=== PATIENT | female | born 1950 | race Caucasian/White ===

== ENCOUNTER 2018-07-31 08:18 | Day surgery (SDC) | payer MEDICARE, OTHER ==
[~2018-07-31] VITALS: Ht 157.5 cm; Wt 54.4 kg
[~2018-07-31 08:18] MED LIST: ACETAMINOPHEN1 EACH PO; ANTACID168 MG PO; CENTRUM SILVER1 EAC5 PO; COD LIVER OIL1 EAC1 PO; COLOSTRUM500 MG PO; FLAGYL500 MG PO; GARLIC1 EACH PO; GREEN TEA CAPL1 EACH PO; KLOR-CON M1010 MEQ PO; LASIX20 MG PO; MULTI VITAMIN1 EACH PO; NICODERM CQ1 EAC1 TD; NORCO 5-325 TA1 EACH PO; PANTOPRAZOLE SO40 MG PO; PERCOCET 7.5-31 EACH PO; SUDAFED 12 HOU120 MG PO; VITAMIN E100 UNI1 PO; VITAMIN K100 MCG PO; [UNRECOGNIZED DRUG - REMARK]; zicam
[2018-07-31] MEDS ORDERED: MAPAP325 MG PO (10:53)
[2018-07-31] MEDS ORDERED: IBUPROFEN600 MG PO (10:53)
--- NOTE | 2018-07-31 10:53 | NUR ---
07/31/18 1053 Janiya Mendez 1041 PT ARRIVED WITH ORAL AIRWAY IN PLACE, RESP EVEN AND UNLABORED. PT STARTED COUGHING AND ORAL AIRWAY REMOVED. PT REORIENTED TO PACU. BP DECREASED AND BP CUFF MOVED AROUND AND RETAKEN. 1044 PT MOVING AROUND IN BED AND O2 REMOVED. PT REORIENTED TO PACU. BP INCREASED TO WITHIN 20% OF BASELINE. PT ASLEEP OFF AND ON. 1050 PT WOKE AND IS REORIENTED TO PACU. PT DENIES PAIN AND NAUSEA. 1051 PT TAKING SIPS OF WATER.
--- NOTE | 2018-08-01 15:04 | OR ---
[facility] [place] [facility] [address] [place], [place] [address] Signed DATE OF OPERATION: 07/31/2018 SURGEON: Renee Shook MD PREOPERATIVE DIAGNOSES: 1. Chest wall nodule suggestive of local breast cancer recurrence. 2. History of stage IV left-sided breast cancer, status post mastectomy, chemotherapy, and refusal of radiation therapy. 3. Nodule of left chest wall medial aspect. POSTOPERATIVE DIAGNOSES: 1. Chest wall nodule suggestive of local breast cancer recurrence. 2. History of stage IV left-sided breast cancer, status post mastectomy, chemotherapy, and refusal of radiation therapy. 3. Nodule of left chest wall medial aspect. PROCEDURE: Excision of chest wall nodule 2.5 cm including skin and subcutaneous tissue. ANESTHESIA: Intravenous sedation and local. ANESTHESIOLOGIST: Renee Dinh CRNA (Marcaine 0.25% with epinephrine). INDICATION: This 67-year-old white woman is a patient of Dr. Dl Mccormack, is known to me from the past having undergone left total mastectomy with axillary dissection for bulky left breast cancer with metastatic disease to the axilla. She has numerous problems including anxiety disorder, as well as von Willebrand disease. Her operation was performed in 2014. She did undergo chemotherapy postoperatively, but refused radiation therapy. Notably, she had a nodule in the right chest wall consistent with recurrent breast cancer. More recently, she has been identified by Dr. Mccormack to have another nodule, this time in the left breast in the region of the prior mastectomy site highly suggestive of local recurrence. Although biopsy of the skin lesion was undertaken previously in the office, she has Electronically Signed By: RENEE SHOOK MD 08/01/18 1504 PATIENT NAME: PARTH PEREZ OPERATIVE REPORT DATE OF : 52 REPORT #: [id number] PHYSICIAN: RENEE SHOOK MD PCP: NO PRIMARY CARE PHYSICIAN REPORT IS CONFIDENTIAL AND NOT TO BE RELEASED WITHOUT AUTHORIZATION [facility] [place] [facility] [address] [place], [place] [address] Signed extreme anxiety and there was a fair amount of distress, screaming, yelling, and so forth with local excision and on that basis she was taken to the operating room for sedation and local anesthesia for a diagnostic excision of this lesion. The risks of bleeding, infection, and so forth were reviewed with her Strong consideration has been made regarding her von Willebrand's disease given the superficial nature of this lesion. has not been initiated for this procedure. This was after conference with Dr. Mccormack about that. FINDINGS: The nodule was dense and highly consistent with local metastatic recurrence. It was excised fully including the skin and subcutaneous tissue. There was no problem with hemostasis. Wound was closed in layers. DESCRIPTION OF PROCEDURE: The patient was brought to the operating room, placed in supine position, and given intravenous sedation. A relatively high amount of propofol was still not adequate for sedation, and additional measures were taken by the strap cutter. Preoperative antibiotic Ancef was given, sequential compression device stockings used. Heparin was not given subcutaneously given her von Willebrand's disease. The left chest was prepared with a chlorhexidine solution and draped sterilely. 0.25% Marcaine with epinephrine was injected locally. An elliptical excision was made in the medial aspect of the left breast to be made in continuity with her mastectomy scar. Dissection was carried around the lesion widely using sharp and electrocautery dissection and extended deeply as well. The wound was then closed with interrupted 2-0 Vicryl in deeper layer and running subcuticular 3-0 Vicryl for the skin. Steri-Strips were applied as was a Mepilex silver sponge dressing and an OpSite. The patient tolerated the procedure well. BLOOD LOSS: Was none. MD PHYLICIA Zacarias/MODL /[id number] Electronically Signed By: RENEE SHOOK MD 08/01/18 1504 PATIENT NAME: PARTH PEREZ OPERATIVE REPORT DATE OF : 52 REPORT #: [id number] PHYSICIAN: RENEE SHOOK MD PCP: NO PRIMARY CARE PHYSICIAN REPORT IS CONFIDENTIAL AND NOT TO BE RELEASED WITHOUT AUTHORIZATION [facility] [address] [place] [id number] Signed cc: Dl Mccormack MD Copies: DL MCCORMACK MD ~ Electronically Signed By: RENEE SHOOK MD 08/01/18 1504 PATIENT NAME: ANAPARTHBRYN DUFFY OPERATIVE REPORT DATE OF : 52 REPORT #: [id number] PHYSICIAN: RENEE SHOOK MD PCP: NO PRIMARY CARE PHYSICIAN REPORT IS CONFIDENTIAL AND NOT TO BE RELEASED WITHOUT AUTHORIZATION
== END 2018-07-31 11:50 | disposition home or self-care (01) ==
LOC: DS 08:18
PROVIDERS: Surgery
PROC: 0HB5XZZ Excision of Chest Skin, External Approach (ICD-10-PCS; 2018-07-31)
PROC: 0JQ60ZZ Repair Chest Subcutaneous Tissue and Fascia, Open Approach (ICD-10-PCS; principal; 2018-07-31 10:30)
DX: C79.2 Secondary malignant neoplasm of skin (principal); D64.9 Anemia, unspecified; F41.9 Anxiety disorder, unspecified; F17.210 Nicotine dependence, cigarettes, uncomplicated; D68.0 Von Willebrand disease; Z90.12 Acquired absence of left breast and nipple; Z92.21 Personal history of antineoplastic chemotherapy; Z85.3 Personal history of malignant neoplasm of breast; Z79.899 Other long term (current) drug therapy
CPT/HCPCS: 00540; 80053; 85025; 88305; 88341; 88342; J1100; J1885; J2250; J2405; J2704; J2765; J3010; J7120

== ENCOUNTER → 2019-09-30 | Emergency (ER) | payer MEDICARE, OTHER ==
[~2019-09-30] VITALS: Ht 157.5 cm; Wt 48.5 kg
[~2019-09-30] MED LIST changes: +ACETAMINOPHEN500 MG PO; +IBUPROFEN600 MG PO; +MAPAP325 MG PO; +XELODA500 MG PO
--- NOTE | 2019-09-30 15:05 | EKG ---
[facility] [address] [facility] [place], [place] [address] Signed Normal sinus rhythm Normal ECG No previous ECGs available Confirmed by PILAR BURKS MD ([id number]) on 09/30/2019 3:05:19 PM Electronically Signed By: PILAR BURKS MD 09/30/19 1505 PATIENT NAME: PARTH PEREZ CLIVE Electrocardiogram DATE OF : 52 PHYSICIAN: PILAR BURKS MD REPORT #: [id number] REPORT IS CONFIDENTIAL AND NOT TO BE RELEASED WITHOUT AUTHORIZATION
== END ==
LOC: ED 11:30
DX: K92.2 Gastrointestinal hemorrhage, unspecified (principal); K83.1 Obstruction of bile duct; D68.0 Von Willebrand disease; C50.919 Malignant neoplasm of unspecified site of unspecified female breast; F17.200 Nicotine dependence, unspecified, uncomplicated; Z79.899 Other long term (current) drug therapy
CPT/HCPCS: 36430; 71045; 80053; 81001; 83605; 85025; 86850; 86900; 86901; 86920; 93005; 93010; 96361; 96374; 96375; 99285-25; C9113; J1170; J1200; J2060; J7030; P9016

== ENCOUNTER 2020-07-12 09:16 | Emergency (ER) | payer MEDICARE, OTHER ==
[~2020-07-12] VITALS: Ht 157.5 cm; Wt 48.6 kg
[2020-07-12] MEDS ORDERED: PROTONIX40 MG PO (11:30)
[2020-07-12] MEDS ORDERED: VALACYCLOVIR1000 MG PO (12:39)
== END 2020-07-12 12:50 | disposition home or self-care (01) ==
LOC: ED 09:16
DX: B02.9 Zoster without complications (principal); Z85.3 Personal history of malignant neoplasm of breast; F17.200 Nicotine dependence, unspecified, uncomplicated; Z88.8 Allergy status to other drugs, medicaments and biological substances; Z85.05 Personal history of malignant neoplasm of liver; Z79.899 Other long term (current) drug therapy
CPT/HCPCS: 99283; A9270